=== PATIENT | male | born 1945 | race Caucasian/White ===

== ENCOUNTER 2021-11-11 12:04 | Outpatient (REF) | payer MEDICARE, SELFPAY ==
--- NOTE | ~2021-11-11 | XR_ITS ---
EXAMINATION: XR CHEST CLINICAL INFORMATION: R06.00 - Dyspnea, unspecified COMPARISON: None TECHNIQUE: 2 frontal views and a lateral projection of the chest are obtained for 3 views. FINDINGS: There are postoperative changes with mediastinal clips, left atrial appendage clamp, and sternotomy wires. The heart is upper limits of normal size. The vascularity is normal. There is no pneumothorax, pleural reaction, infiltrate, or effusion. The costophrenic sulci are clear. The hilar and mediastinal contours are normal. There are multilevel degenerative changes thoracic spine with bridging osteophytes at scattered ossification anterior spinal ligament. XR/XR chest 2V IMPRESSION: -Postoperative changes. Heart upper limits of normal. -Vascularity normal. Lungs clear.
--- NOTE | 2021-11-11 17:17 | PFT_ITS ---
FLOWS: FEV1 63% of predicted at 2.13 L. FVC 64% of predicted at 2.96 L. FEV1/FVC ratio of 0.72. No bronchodilator response. LUNG VOLUMES: Total lung capacity 66% of predicted at 4.93 L. Residual volume 70% of predicted at 1.87 L. Slow vital capacity 63% of predicted at 3.06 L. Expiratory reserve volume 64% of predicted at 0.87 L. Diffusion capacity is mildly decreased, diffusion capacity corrects to normal after adjustment for alveolar ventilation. IMPRESSION: Moderate restrictive ventilatory defect with no bronchodilator response. Decreased expiratory reserve volume suggests extrathoracic restriction likely secondary to abdominal obesity. Angel Orr MD AP/MODL / [id number]
== END 2021-11-11 12:05 | disposition home or self-care (01) ==
LOC: HO.RESP 12:04
PROVIDERS: PCP Internal Medicine; Visit Provider Hospitalist
DX: R06.00 Dyspnea, unspecified (principal); G47.33 Obstructive sleep apnea (adult) (pediatric); J90 Pleural effusion, not elsewhere classified; Z99.89 Dependence on other enabling machines and devices
CPT/HCPCS: 71046; 94060; 94618; 94727; 94729; 99202

== ENCOUNTER → 2021-12-23 10:13 | Outpatient (BNVA) | payer MEDICARE, SELFPAY | PROVIDERS: PCP Internal Medicine; Visit Provider Hospitalist | DX: G47.33 Obstructive sleep apnea (adult) (pediatric) (principal); J98.4 Other disorders of lung; J44.9 Chronic obstructive pulmonary disease, unspecified; R06.00 Dyspnea, unspecified; I48.91 Unspecified atrial fibrillation; Z99.89 Dependence on other enabling machines and devices | CPT/HCPCS: 99212 ==

== ENCOUNTER → 2022-01-20 09:44 | Outpatient (BNVA) | payer MEDICARE, SELFPAY | PROVIDERS: PCP Internal Medicine; Visit Provider Hospitalist | DX: J44.9 Chronic obstructive pulmonary disease, unspecified (principal); J98.4 Other disorders of lung; R06.00 Dyspnea, unspecified; G47.33 Obstructive sleep apnea (adult) (pediatric); I48.91 Unspecified atrial fibrillation; Z79.899 Other long term (current) drug therapy; Z99.89 Dependence on other enabling machines and devices | CPT/HCPCS: 99212 ==

== ENCOUNTER → 2022-07-22 09:46 | Outpatient (BNVA) | payer MEDICARE, SELFPAY | PROVIDERS: PCP Internal Medicine; Visit Provider Hospitalist | DX: J44.9 Chronic obstructive pulmonary disease, unspecified (principal); J98.4 Other disorders of lung; R06.00 Dyspnea, unspecified; G47.33 Obstructive sleep apnea (adult) (pediatric); I48.91 Unspecified atrial fibrillation; Z99.89 Dependence on other enabling machines and devices | CPT/HCPCS: 99212 ==

== ENCOUNTER 2023-01-13 10:40 | Outpatient (AMB) | payer MEDICARE, SELFPAY ==
--- NOTE | 2023-01-13 10:51 | MHC.OFFVIS ---
Intake Vital Signs 01/13/23 10:52 Height 6 ft Weight 282 lb BMI 38.2 Pulse 75 Pulse Source Pulse Oximeter Pulse Oximetry (%) 95 Oxygen Delivery Method Room Air Intake Visit Reasons: COPD Blueprint Cutter Required: No Allergies amlodipine Allergy (Severe, Verified 01/13/23 10:53) Muscle Pain atorvastatin Allergy (Severe, Verified 01/13/23 10:53) Anaphylaxis rosuvastatin [From Crestor] Allergy (Severe, Verified 01/13/23 10:53) Anaphylaxis terazosin Allergy (Severe, Verified 01/13/23 10:53) Anaphylaxis umeclidinium [From Incruse Ellipta] Adverse Reaction (Severe, Verified 01/13/23 10:53) Muscle cramps HPI HPI Comments History of Present Illness Details The patient is a 77-year-old gentleman with a known history of sleep apnea who presents with worsening respiratory symptoms. Apparently the patient did undergo a cardiac bypass surgery that was complicated by pleural effusions. This was done at [facility]. He did require a thoracentesis. Subsequently after surgery he continues to have some shortness of breath. He has been evaluated from a cardiac standpoint without any significant findings Per report. Recently the patient went to [place] where he was very short of breath. He does use a cane. He had to rent a scooter. This is very different for him. His shortness of breath is mainly with activity. Moderate to severe. Usually he is doing well at rest time. During the office visit we did go for 6 minutes walk test. It was apparent that the patient pulse ox was 98% throughout the ambulation. However, is very short of breath with dyspnea score of 7/10 with a heart rate of 110. the patient has not had any recent x-rays to review. the patient also brought his CPAP. I did download the data. His AHI is down to 1.6 events an hour. The therapy is working just fine. I will increase his minute impression from 4-6 cm. 12/23/2021 the patient is here for a pulmonary follow-up visit. For the last several days he has been significantly winded. He is short of breath with standing up. Moderate severity. The has been very concerned about his worsening respiratory symptoms. 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 He did undergo pulmonary function studies and his total lung capacity is decreased down to 66% predicted. His diffusing capacity is also decreased but it does correct to normal when corrected for the paralyzed diaphragm. the patient also likely has an obstructive physiology which will treat with a long-acting muscarinic antagonist. In the meantime he did also bring the CPAP. The CPAP therapy has been affecting beneficial in his AHI is well below 1. He also had an overnight oximetry which was normal suggesting that the CPAP on room air is sufficient for him. Therefore he continue with the current pressure settings which appeared to be effective. We did look at the x-ray. The patient does have some underlying atelectasis likely from the diaphragm. He also brought to my attention that his pulmonary nodules. At this point based on his worsening respiratory symptoms and abnormal chest x-ray I will request CT scan of the chest. During the examination was noted the patient had an elevated heart rate in regularly irregular consistent with AFib with rapid ventricular response. We did do an EKG demonstrating atrial fibrillation with rapid ventricular response with heart rate of 115. We did taken briefly for walking his heart rate did increase to 156. Patient was visually symptomatic. 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 01/20/2022 the patient is here for pulmonary follow-up visit. The patient was admitted to [facility] where he underwent cardioversion during the last admission. His metoprolol was increased from 25-50 mg and also placed on a cholesterol medication. The patient also had been started on Incruse. Therefore, he started all this new medications. He started complaining of neck discomfort and muscle aches. Therefore he stopped taking the cholesterol medication. Ultimately cut down the metoprolol to 25 mg again and also stop using the Incruse in view of the persistent symptoms. Once he stopped all the medicine his symptoms improved. His shortness of breath overall has been much better although he still feels short of breath and cough. He felt much better on the Incruse. However he could not tolerated due to adverse effects. I did talk to about other medications such as Spiriva that he could potentially start for long-acting muscarinic antagonist that will interfere with his atrial fibrillation. Due to his atrial fibrillation is very labile state the patient needs to avoid beta agonists if possible. Therefore will do a prior approval in order for him to start Spiriva and the patient will call his trade union official to make sure of the medication adjustments that he made on hos own. in the meantime he continues uses CPAP. The CPAP therapy continues to be affecting beneficial. The last time he came in we did download the data and he is doing very well on his current settings. 07/22/2022 the patient is here for a pulmonary follow-up visit. Overall the patient continues to do well. He is using the Spiriva. Does not feel like it is working as well as the Anoro did. He did develop the muscle cramps and discomfort at the time when he was using the Incruse. However, he other had other issues that have been going on. He is willing to go back on the Incruse since he was working better than the Spiriva. Does have some shortness of breath with activity specially later on the daytime. [id number] severity. Also has some chest tightness. The patient's AFib is under control. I do believe that he probably do better on a combination bronchodilator. Therefore I will send him Anoro to the pharmacy. He is going to monitor closely for any tremulousness or any palpitations. Also, if he does develop muscle cramping he should continue to take enough potassium in his diet to make sure to avoid significant potassium she is from the medication. His last chest x-ray was back from October which appear to be clear. In meantime he also continues CPAP therapy. CPAP therapy continues to be affective and beneficial. He has been getting supplies readily with his [employer] company. He does use the machine more than 4 hours a night. 01/13/2023 the patient is here for pulmonary follow-up visit. Overall the patient is doing well. He is responding well to the Anoro inhaler. He is using it daily. She does not appear to be affecting his atrial fibrillation. He feels like he is breathing better with. Therefore he will continue at this time. The patient also has been using his CPAP. CPAP therapy has been affecting beneficial. We did download the data and his AHI is down to 2 point 2. It appears that his average pressure around 10 cm in the machine starts at 6 cm. I did increase it to 7 cm and he is able to increase it up to 8 cm water pressure for minimum pressure if he still feels too weak. He does use a nasal mask any seems to be tolerating that well. The therapy has been affecting beneficial new continue to use it more than 4 hours a night. Soon he is going to have some teeth removed. The patient will have to stop the CPAP while he heals from that. The patient does have a recliner and I did request recommend that he sleep in the recliner while he is off the CPAP. Patient is doing well otherwise will follow-up in a year's time or sooner if any other issues arise. [facility] Medical History (Updated 12/25/21 @ 22:29 by Carlos Jane MD) Chronic restrictive lung disease Dyspnea Social History (Updated 11/11/21 @ 11:18 by NOLAN Farrar) Patient Tobacco Use Status: Former Tobacco user Tobacco use type: Cigarette Years Smoked: 34 Years Review of Systems Const Denies fever(s) Eyes Denies change in vision ENT Denies change in voice Card Denies chest pain, Denies palpitations, Denies dyspnea and Reports dyspnea on exertion Resp Reports cough, Denies dyspnea, Reports dyspnea on exertion, Denies stridor and Denies wheezing GI Reports no additional complaints Musc Reports abnormal gait, Reports arthralgias and Reports limited range of motion Skin/Breast Denies rash Neuro Reports abnormal gait Endo Denies palpitations Aller/Immun Denies wheezing Physical Exam Vital Signs: Last Vital Signs Pulse 75 01/13/23 10:52 Pulse Ox 95 01/13/23 10:52 Oxygen Delivery Method Room Air 01/13/23 10:52 BMI result Body Mass Index 38.2 Const General: alert Neck Neck: Yes normal visual inspection and Yes full ROM Chest Chest palpation & inspection: normal inspection of the chest Resp Auscultation: no crackles, no rales, no rhonchi, no wheezes and diminished lung sounds Cardio Rate: regular rate Rhythm: regular rhythm Heart sounds: S1 normal heart sound present and S2 normal heart sound present GI Inspection: Yes normal to inspection Skin General skin exam: no rashes or lesions noted Extrem General: No clubbing and No cyanosis Assessment & Plan Assessment & Plan (1) Dyspnea: Code(s): R06.00 - Dyspnea, unspecified Qualifiers: Dyspnea type: dyspnea on exertion Qualified Code(s): R06.00 - Dyspnea, unspecified (2) LISETTE on CPAP: Code(s): G47.33 - Obstructive sleep apnea (adult) (pediatric); Z99.89 - Dependence on other enabling machines and devices (3) Chronic restrictive lung disease: Code(s): J98.4 - Other disorders of lung (4) COPD (chronic obstructive pulmonary disease): Code(s): J44.9 - Chronic obstructive pulmonary disease, unspecified Plan continue Anoro continue APAP therapy, Adjusted pressures today 7-14. The therapy has been very effective and beneficial. When he does have his teeth extraction, should hold the PAP therapy and sleep in the recliner for the appropriate required recovery time F/U 12 months Coding Level of Care Code Est Pt Level 4 (76988) Diagnoses Dyspnea R06.00 Dyspnea type: dyspnea on exertion LISETTE on CPAP G47.33; Z99.89 Chronic restrictive lung disease J98.4 COPD (chronic obstructive pulmonary disease) J44.9 Time Spent (min) 18
[2023-01-13 10:52] VITALS: PULSE 75; O2SAT 95; BMI 38.2
== END 2023-01-13 11:28 | disposition home or self-care (01) ==
PROVIDERS: PCP Internal Medicine; Visit Provider Hospitalist
DX: R06.00 Dyspnea, unspecified (principal); G47.33 Obstructive sleep apnea (adult) (pediatric); Z99.89 Dependence on other enabling machines and devices; J98.4 Other disorders of lung; J44.9 Chronic obstructive pulmonary disease, unspecified
CPT/HCPCS: 99214

== ENCOUNTER → 2023-01-13 10:40 | Outpatient (BNVA) | payer MEDICARE, SELFPAY | PROVIDERS: PCP Internal Medicine; Visit Provider Hospitalist | DX: J44.9 Chronic obstructive pulmonary disease, unspecified (principal); J98.4 Other disorders of lung; R06.00 Dyspnea, unspecified; G47.33 Obstructive sleep apnea (adult) (pediatric); Z99.89 Dependence on other enabling machines and devices; Z79.899 Other long term (current) drug therapy | CPT/HCPCS: 99212 ==

== ENCOUNTER 2024-01-19 10:39 | Outpatient (AMB) | payer MEDICARE, SELFPAY ==
--- NOTE | 2024-01-19 10:42 | MHC.OFFVIS ---
Vital Signs 01/19/24 10:44 Height 6 ft Weight 235 lb BMI 31.9 BP 134/78 Blood Pressure Location Lt brachial Position Sitting Pulse 65 Pulse Source Pulse Oximeter Pulse Oximetry (%) 98 Oxygen Delivery Method Room Air Intake Visit Reasons: COPD Six Horse Hitch Driver Required: No Allergies amlodipine Allergy (Severe, Verified 01/19/24 10:47) Muscle Pain atorvastatin Allergy (Severe, Verified 01/19/24 10:47) Anaphylaxis rosuvastatin [From Crestor] Allergy (Severe, Verified 01/19/24 10:47) Anaphylaxis terazosin Allergy (Severe, Verified 01/19/24 10:47) Anaphylaxis umeclidinium [From Incruse Ellipta] Adverse Reaction (Severe, Verified 01/19/24 10:47) Muscle cramps HPI Comments Details: The patient is a 78-year-old gentleman with a known history of sleep apnea who presents with worsening respiratory symptoms. Apparently the patient did undergo a cardiac bypass surgery that was complicated by pleural effusions. This was done at [facility]. He did require a thoracentesis. Subsequently after surgery he continues to have some shortness of breath. He has been evaluated from a cardiac standpoint without any significant findings Per report. Recently the patient went to [place] where he was very short of breath. He does use a cane. He had to rent a scooter. This is very different for him. His shortness of breath is mainly with activity. Moderate to severe. Usually he is doing well at rest time. During the office visit we did go for 6 minutes walk test. It was apparent that the patient pulse ox was 98% throughout the ambulation. However, is very short of breath with dyspnea score of 7/10 with a heart rate of 110. the patient has not had any recent x-rays to review. the patient also brought his CPAP. I did download the data. His AHI is down to 1.6 events an hour. The therapy is working just fine. I will increase his minute impression from 4-6 cm. 01/13/2023 the patient is here for pulmonary follow-up visit. Overall the patient is doing well. He is responding well to the Anoro inhaler. He is using it daily. She does not appear to be affecting his atrial fibrillation. He feels like he is breathing better with. Therefore he will continue at this time. The patient also has been using his CPAP. CPAP therapy has been affecting beneficial. We did download the data and his AHI is down to 2 point 2. It appears that his average pressure around 10 cm in the machine starts at 6 cm. I did increase it to 7 cm and he is able to increase it up to 8 cm water pressure for minimum pressure if he still feels too weak. He does use a nasal mask any seems to be tolerating that well. The therapy has been affecting beneficial new continue to use it more than 4 hours a night. Soon he is going to have some teeth removed. The patient will have to stop the CPAP while he heals from that. The patient does have a recliner and I did request recommend that he sleep in the recliner while he is off the CPAP. Patient is doing well otherwise will follow-up in a year's time or sooner if any other issues arise. 01/19/2024 the patient is here for a pulmonary follow-up visit. Overall the patient has been doing okay. He has been struggling with his current CPAP. It appears that is no longer working effectively. His given him a warning sign that the angina time. Through [employer] for more than 5 years, likely more like 9 years. Machine had been working very good up before that. The patient does use it with good adherence. He does have significant cardiovascular risk factors so therefore needs to continue with the APAP. Will request a replacement machine. In addition to that he has not dental work done now can not wear dentures when sleeping. Therefore the nasal mask that was working well for him does not hold well because of the lack of dentures. Therefore, will go ahead and request a different mask for him, P 30 I. I did have a sample for him to try. Medium seems to be a good fit. Therefore will request that as well from his [employer] company, [employer]. From a respiratory status seems to be doing well on the Anoro. His AFib is well controlled so therefore will continue for now. We can always consider switching over to a anti muscarinic agent such as Spiriva in the near future. Right now seems to be doing well with everything going on I think is good option just to stay on it as long as he is tolerating it. [facility] Medical History (Updated 01/19/24 @ 22:21 by Carlos Jane MD) Chronic restrictive lung disease Dyspnea Social History (Updated 11/11/21 @ 11:18 by NOLAN Farrar) Patient Tobacco Use Status: Former Tobacco user Tobacco use type: Cigarette Years Smoked: 34 Years Review of Systems Const Denies fever(s) Eyes Denies change in vision ENT Denies change in voice Card Denies chest pain, Denies palpitations, Denies dyspnea and Reports dyspnea on exertion Resp Reports cough, Denies dyspnea, Reports dyspnea on exertion, Denies stridor and Denies wheezing GI Reports no additional complaints Musc Reports abnormal gait, Reports arthralgias and Reports limited range of motion Skin/Breast Denies rash Neuro Reports abnormal gait Endo Denies palpitations Aller/Immun Denies wheezing Physical Exam Vital Signs: Last Vital Signs Pulse 65 01/19/24 10:44 BP 134/78 01/19/24 10:44 Pulse Ox 98 01/19/24 10:44 Oxygen Delivery Method Room Air 01/19/24 10:44 BMI result Body Mass Index 31.9 Const General: alert Neck Neck: Yes normal visual inspection and Yes full ROM Chest Chest palpation & inspection: normal inspection of the chest Resp Auscultation: no crackles, no rales, no rhonchi, no wheezes and diminished lung sounds Cardio Rate: regular rate Rhythm: regular rhythm Heart sounds: S1 normal heart sound present and S2 normal heart sound present GI Inspection: Yes normal to inspection Skin General skin exam: no rashes or lesions noted Extrem General: No clubbing and No cyanosis Assessment & Plan Assessment & Plan (1) Dyspnea: Code(s): R06.00 - Dyspnea, unspecified Category: Medical Qualifiers: Dyspnea type: dyspnea on exertion Qualified Code(s): R06.00 - Dyspnea, unspecified (2) LISETTE on CPAP: Code(s): G47.33 - Obstructive sleep apnea (adult) (pediatric); Z99.89 - Dependence on other enabling machines and devices Category: Medical (3) Chronic restrictive lung disease: Code(s): J98.4 - Other disorders of lung Category: Medical (4) COPD (chronic obstructive pulmonary disease): Code(s): J44.9 - Chronic obstructive pulmonary disease, unspecified Category: Medical Qualifiers: COPD type: chronic bronchitis Chronic bronchitis type: simple Qualified Code(s): J41.0 - Simple chronic bronchitis Plan continue Anoro CPAP broken beyond repair, needs a replacment APAP. Also needs a new mask. We will request APAP 8-14 with p30i medium needs CXR F/U 12 months Orders: Orders XR chest 2V Today R06.00 - Dyspnea, unspecified Coding Level of Care Code Est Pt Level 4 (43213) Diagnoses Dyspnea on exertion R06.00 Dyspnea type: dyspnea on exertion LISETTE on CPAP G47.33; Z99.89 Chronic restrictive lung disease J98.4 Simple chronic bronchitis J41.0 COPD type: chronic bronchitis Chronic bronchitis type: simple Time Spent (min) 17
[2024-01-19 10:44] VITALS: BP 134/78; PULSE 65; O2SAT 98; BMI 31.9
== END 2024-01-19 11:30 | disposition home or self-care (01) ==
PROVIDERS: PCP Internal Medicine; Visit Provider Hospitalist
DX: R06.00 Dyspnea, unspecified (principal); G47.33 Obstructive sleep apnea (adult) (pediatric); Z99.89 Dependence on other enabling machines and devices; J98.4 Other disorders of lung; J41.0 Simple chronic bronchitis
CPT/HCPCS: 99214

== ENCOUNTER → 2024-01-19 10:39 | Outpatient (BNVA) | payer MEDICARE, SELFPAY | PROVIDERS: PCP Internal Medicine; Visit Provider Hospitalist | DX: R06.00 Dyspnea, unspecified (principal); J98.4 Other disorders of lung; J41.0 Simple chronic bronchitis; G47.33 Obstructive sleep apnea (adult) (pediatric); Z99.89 Dependence on other enabling machines and devices | CPT/HCPCS: 99212 ==

== ENCOUNTER 2024-03-18 13:34 | Outpatient (REF) | payer MEDICARE, SELFPAY ==
--- NOTE | ~2024-03-18 | XR_ITS ---
EXAMINATION: XR CHEST CLINICAL INFORMATION: Dyspnea COMPARISON: Chest x-ray on 11/11/2021 TECHNIQUE: 2 views of the chest were obtained. FINDINGS: No significant abnormality is noted involving the heart, lungs, mediastinum, bony thorax or soft tissues. XR/XR chest 2V IMPRESSION: Unremarkable examination. Electronically signed by: Lori Rosado MD 03/19/2024 05:33 PM EDT RP
== END 2024-03-18 13:35 | disposition home or self-care (01) ==
LOC: HO.XRAY 13:34
PROVIDERS: PCP Internal Medicine; Visit Provider Hospitalist
DX: R06.00 Dyspnea, unspecified (principal)
CPT/HCPCS: 71046

== ENCOUNTER 2025-01-16 10:45 | Outpatient (AMB) | payer MEDICARE, SELFPAY ==
--- NOTE | 2025-01-16 10:51 | MHC.OFFVIS ---
Vital Signs 01/16/25 10:52 Height 6 ft Weight 244 lb 11.41 oz BMI 33.2 BP 134/70 Blood Pressure Location Lt brachial Position Sitting Pulse 73 Pulse Source Pulse Oximeter Pulse Oximetry (%) 99 Oxygen Delivery Method Room Air Intake Visit Reasons: COPD [employer] Inspector Required: No Accompanied by: Spouse Allergies amlodipine Allergy (Severe, Verified 01/16/25 10:56) Muscle Pain atorvastatin Allergy (Severe, Verified 01/16/25 10:56) Anaphylaxis rosuvastatin (From Crestor) Allergy (Severe, Verified 01/16/25 10:56) Anaphylaxis terazosin Allergy (Severe, Verified 01/16/25 10:56) Anaphylaxis umeclidinium (From Incruse Ellipta) Adverse Reaction (Severe, Verified 01/16/25 10:56) Muscle cramps HPI Comments Details: The patient is a 79-year-old gentleman with a known history of sleep apnea who presents with worsening respiratory symptoms. Apparently the patient did undergo a cardiac bypass surgery that was complicated by pleural effusions. This was done at [facility]. He did require a thoracentesis. Subsequently after surgery he continues to have some shortness of breath. He has been evaluated from a cardiac standpoint without any significant findings Per report. Recently the patient went to [place] where he was very short of breath. He does use a cane. He had to rent a scooter. This is very different for him. His shortness of breath is mainly with activity. Moderate to severe. Usually he is doing well at rest time. During the office visit we did go for 6 minutes walk test. It was apparent that the patient pulse ox was 98% throughout the ambulation. However, is very short of breath with dyspnea score of 7/10 with a heart rate of 110. the patient has not had any recent x-rays to review. the patient also brought his CPAP. I did download the data. His AHI is down to 1.6 events an hour. The therapy is working just fine. I will increase his minute impression from 4-6 cm. 01/13/2023 the patient is here for pulmonary follow-up visit. Overall the patient is doing well. He is responding well to the Anoro inhaler. He is using it daily. She does not appear to be affecting his atrial fibrillation. He feels like he is breathing better with. Therefore he will continue at this time. The patient also has been using his CPAP. CPAP therapy has been affecting beneficial. We did download the data and his AHI is down to 2 point 2. It appears that his average pressure around 10 cm in the machine starts at 6 cm. I did increase it to 7 cm and he is able to increase it up to 8 cm water pressure for minimum pressure if he still feels too weak. He does use a nasal mask any seems to be tolerating that well. The therapy has been affecting beneficial new continue to use it more than 4 hours a night. Soon he is going to have some teeth removed. The patient will have to stop the CPAP while he heals from that. The patient does have a recliner and I did request recommend that he sleep in the recliner while he is off the CPAP. Patient is doing well otherwise will follow-up in a year's time or sooner if any other issues arise. 01/19/2024 the patient is here for a pulmonary follow-up visit. Overall the patient has been doing okay. He has been struggling with his current CPAP. It appears that is no longer working effectively. His given him a warning sign that the angina time. Through [employer] for more than 5 years, likely more like 9 years. Machine had been working very good up before that. The patient does use it with good adherence. He does have significant cardiovascular risk factors so therefore needs to continue with the APAP. Will request a replacement machine. In addition to that he has not dental work done now can not wear dentures when sleeping. Therefore the nasal mask that was working well for him does not hold well because of the lack of dentures. Therefore, will go ahead and request a different mask for him, P 30 I. I did have a sample for him to try. Medium seems to be a good fit. Therefore will request that as well from his [employer] company, [employer]. From a respiratory status seems to be doing well on the Anoro. His AFib is well controlled so therefore will continue for now. We can always consider switching over to a anti muscarinic agent such as Spiriva in the near future. Right now seems to be doing well with everything going on I think is good option just to stay on it as long as he is tolerating it. 01/16/2025 the patient is here for pulmonary follow-up visit. Overall he is doing well. Continues on the Anoro with good effect. Has not had to use his rescue inhaler often. Maybe when it was very hot and humid he had to use his inhaler. His atrial fibrillation cardiac issues have been stable. He also had a chest x-ray back 2023 which I personally reviewed demonstrating no acute disease. The patient has been using his CPAP. The CPAP therapy has been affecting beneficial. He did get his new machine. His AHI is down to 2. Although he has significant leakage through his mouth and has been snoring. Therefore I did explain to him that he needs to switch from a nasal mask to a fullface mask. The patient is agreeable to this. I did have a F20 AirTouch foam mask available. This allowed him to feel a lot better with seal. He tried and tolerated it well. He is going to go ahead and continue to use it and if he is content with it he will let me know so I can order it from his DME company, [employer]. Otherwise the patient is doing well will follow-up in a year's time. [facility] Medical History (Updated 01/19/24 @ 22:21 by Carlos Jane MD) Chronic restrictive lung disease Dyspnea Social History Patient Tobacco Use Status: Former Tobacco user Tobacco use type: Cigarette Years Smoked: 34 Years Review of Systems Const Denies fever(s) Eyes Denies change in vision ENT Denies change in voice and Reports dry mouth Card Denies chest pain, Denies palpitations, Denies dyspnea and Reports dyspnea on exertion Resp Reports cough, Denies dyspnea, Reports dyspnea on exertion, Denies stridor and Denies wheezing GI Reports no additional complaints Musc Reports abnormal gait, Reports arthralgias and Reports limited range of motion Skin/Breast Denies rash Neuro Reports abnormal gait Endo Denies palpitations Aller/Immun Denies wheezing Physical Exam Vital Signs: Last Vital Signs Pulse 73 01/16/25 10:52 BP 134/70 01/16/25 10:52 Pulse Ox 99 01/16/25 10:52 Oxygen Delivery Method Room Air 01/16/25 10:52 BMI result Body Mass Index 33.2 Const General: alert Neck Neck: Yes normal visual inspection and Yes full ROM Chest Chest palpation & inspection: normal inspection of the chest Resp Auscultation: no crackles, no rales, no rhonchi, no wheezes and diminished lung sounds Cardio Rate: regular rate Rhythm: regular rhythm Heart sounds: S1 normal heart sound present and S2 normal heart sound present GI Inspection: Yes normal to inspection Skin General skin exam: no rashes or lesions noted Extrem General: No clubbing and No cyanosis Assessment & Plan Assessment & Plan (1) Dyspnea: Code(s): R06.00 - Dyspnea, unspecified Category: Medical Qualifiers: Dyspnea type: dyspnea on exertion Qualified Code(s): R06.00 - Dyspnea, unspecified (2) LISETTE on CPAP: Code(s): G47.33 - Obstructive sleep apnea (adult) (pediatric); Z99.89 - Dependence on other enabling machines and devices Category: Medical (3) Chronic restrictive lung disease: Code(s): J98.4 - Other disorders of lung Category: Medical (4) COPD (chronic obstructive pulmonary disease): Code(s): J44.9 - Chronic obstructive pulmonary disease, unspecified Category: Medical Qualifiers: COPD type: chronic bronchitis Chronic bronchitis type: simple Qualified Code(s): J41.0 - Simple chronic bronchitis Plan continue Anoro LOIDA as needed continue APAP 8-14, trial F20 airtouch F/U 12 months Coding Level of Care Code Est Pt Level 4 (43694) Complex EM visit Add On G2211 Diagnoses Dyspnea on exertion R06.00 Dyspnea type: dyspnea on exertion LISETTE on CPAP G47.33; Z99.89 Chronic restrictive lung disease J98.4 Simple chronic bronchitis J41.0 COPD type: chronic bronchitis Chronic bronchitis type: simple Time Spent (min) 17
[2025-01-16 10:52] VITALS: BP 134/70; PULSE 73; O2SAT 99; BMI 33.2
--- OUTSIDE RECORDS SUMMARY | 2025-01-16 11:45 | XMS_ITS | Clinical Summary ---
Author Organization [facility] Address [address] [place] [address] Care Team Providers Care Application Support Name Role Phone Shayan Sosa MD Primary Care Provider [phone] Allergies No known active allergies Medications Medication Sig Dispensed Refills Start Date End Date Status Alirocumab (Praluent) 75 MG/ML SOAJ Inject 75 mg under the skin. 0 01/31/2022 Active amLODIPine (NORVASC) tablet 5 mg 0 11/27/2021 Active apixaban (ELIQUIS) 5 MG TABS tablet Take 5 mg by mouth. 0 08/27/2021 Active aspirin 81 MG EC tablet Take 81 mg by mouth. 0 Active ezetimibe (ZETIA) tablet 10 mg Take 1 tablet by mouth daily. 0 08/26/2021 Active furosemide (LASIX) 20 MG tablet Take 1 tablet by mouth 2 (two) times a day. 0 12/16/2021 Active insulin aspart (NovoLOG) injection 100 units/mL Inject under the skin. 0 Active Magnesium Citrate 125 MG CAPS Take 250 mg by mouth. 0 02/09/2020 Active metFORMIN (GLUCOPHAGE) tablet 1000 mg Take 1,000 mg by mouth. 0 07/01/2022 Active metoprolol succinate (TOPROL-XL) 24 hr tablet 25 mg Take 50 mg by mouth. 0 Active nitroglycerin (NITROSTAT) 0.[address] 0.4 mg under the tongue. 0 Active Spiriva Respimat 2.5 MCG/ACT AERS 0 01/21/2022 Active Incruse Ellipta 62.5 MCG/INH AEPB 0 12/25/2021 Active Social History Tobacco Use Types Packs/Day Years Used Date Smoking Tobacco: Never Smokeless Tobacco: Never Alcohol Use Standard Drinks/Week Comments Not Currently 0 (1 standard drink = 0.6 oz pur e alcohol) Sex and Gender Information Value Date Recorded Sex Assigned at Male 01/31/2022 3:14 PM EDT Gender Identity Not on file Sexual Orientation Not on file Job Start Date Occupation Industry Not on file Not on file Not on file Last Filed Vital Signs Vital Sign Reading Time Taken Comments Blood Pressure 152/88 01/31/2022 3:03 PM EDT Pulse 83 01/31/2022 3:03 PM EDT Temperature 36.4 C (97.6 F) 01/31/2022 3:03 PM EDT Respiratory Rate 16 01/31/2022 3:03 PM EDT Oxygen Saturation 97% 01/31/2022 3:03 PM EDT Inhaled Oxygen Concentration - - Weight 131.5 kg (290 lb) 01/31/2022 3:03 PM EDT Height 185.4 cm (6' 1 ) 01/31/2022 3:03 PM EDT Body Mass Index 38.26 01/31/2022 3:03 PM EDT Plan of Treatment Health Maintenance Due Date Last Done Comments Hepatitis C Screening 1945 COVID-19 Vaccine (#1) 05/24/1946 Depression Screening 1958 Preventative Health Evaluation 1964 DTap / Tdap / Td (1 - Tdap) 1965 Fall Risk Assessment 11/23/2011 Pneumococcal Vaccine (1 of 1 - PCV) 11/23/2011 RSV Adult > 60+ Yrs or (1 - 1-dose 75+ series) 2021 Influenza Vaccine (#1) 2025 , 01/23/2020, 03/23/2019 Shingrix-Zoster Vaccine Completed 05/04/20 18, 02/17/2018 Hepatitis B Vaccines Aged Out No long er eligible based on patient's age to complete this topic RSV Ped < 20 months Aged Out No longe r eligible based on patient's age to complete this topic Care Teams Application Support Relationship Specialty Start Date End Date Shayan Sosa MD [address] [facility] Primary Care [place] [address] PCP - General Internal Medicine 01/31/22
--- OUTSIDE RECORDS SUMMARY | 2025-01-16 11:45 | XMS_ITS | Patient Health Record ---
Author Organization [facility] Address [address] [facility] [address] [place] [address] Care Team Providers Care Teletype Installer Name Role Phone Shayan Sosa Primary Care Provider UnavailDESIRAE [place] Unavailable [phone] Allergies Allergen (clinical drug ingredient) Drug/Non Drug Allergy documented on EMR Reaction Allergy Type Onset Date Status Substance with 5-qhtxhqo-8-methylglut aryl-coenzyme A reductase inhibitor mechanism of action (substance) Statins muscle pain Drug Allergy Active Reason For Referral No Information Medications Medication SIG (Take, Route, Frequency, Duration) Notes Start Date End Date Status Losartan Potassium 50 MG 1 tablet Orally Once a day Active Spiriva Respimat 2.5 MCG/ACT 2 puffs Inhalation Once a day Not-Taking Qulipta 60 MG 1 tablet Orally Once a day Active amLODIPine Besylate 5 MG 1 tablet Orally Once a day Not-Taking Aspirin 81 MG 1 tablet Orally Once a day Active Crestor 20 MG 1 tablet Orally Once a day Not-Taking Praluent 75 MG/ML as directed Subcutaneous Active Lidocaine HCl 5 % as directed Externally daily; Duration: 30 days Apply to both lower extremities at bedtime as needed for neuropathy pains. 03/23/2020 Not-Taking Metoprolol Succinate ER 100 MG 1 tablet Orally Once a day Active Furosemide 40 MG 1 tablet Orally 40mg in the morning, and 20mg in the evening Active Eliquis 5 MG as directed Orally Active metFORMIN HCl 1000 MG 1 tablet with a meal Orally twice a day Active Magnesium 125 MG as directed Orally Active NovoLOG FlexPen 100 UNIT/ML as directed Subcutaneous Active Basaglar KwikPen 100 UNIT/ML as directed Subcutaneous 65 twice a day Active Problems Problem Type SNOMED Code ICD Code Onset Dates Problem Status W/U Status Risk Notes Problem Type 2 diabetes mellitus with diabetic polyneuropathy (E11.42) Active confirmed Problem Type 2 diabetes mellitus with diabetic polyneuropathy, unspecified whether skilled nursing insulin use (E11.42) Active confirmed Plan Of Treatment Pending Test Test Name Order Date X ray : Ankle, left, 3 views 03/23/2020 X ray : Ankle, left, 3 views 02/05/2022 Ultrasound : Artery Doppler Low Ext Bila t 03/23/2020 Ultrasound : Doppler : Veins Leg Neil. AFO ANK GAUNTLT PREFAB W/FIT&ADJ 022 AFO ANK GAUNTLT PREFAB W/FIT&ADJ 023 AFO ANK GAUNTLT PREFAB W/FIT&ADJ 023 Insurance Providers Payer Name Payer Address Payer Phone Subscriber Number Group Number Insured Name Patient Relationship to Insured Coverage Start Date Coverage End Date Medicare of [place] [address] [place]ELICIANO [phone] [id number] Сергей Mcugire Self - patient is the insured [employer] [address] [place] [phone] [id number] Сергей Mcguire Self - patient is the insured Medical (General) History Medical History History ICD Code Old myocardial infarction CAD (coronary artery disease) s/p RCA st ent placed Atrial fibrillation Anginal pain Atherosclerosis Bilateral pleural effusion Cataract extraction status Dyspnea on exertion Ex-smoker. quit 1987 hypertension history of heart artery stent hypercholesterolemia heart murmur OA(osteoarthritis) LISETTE on CPAP Obesity(BMI 39 as of 06/18/18) Raynaud phenomenon Triple vessel coronary artery disease Type 2 diabetes mellitus Surgical History Surgery Date(Month/Year) Historical left total knee replacement Historical right total hip replacement CABG and cardiac stent cardioversion 10/2021 cardioversion 08/2022 cardioversion 11/2022 ablation 03/2023 Hospitalization History Reason Date(Month/Year) A [facility] X 3 days had cardio version 12/23/2021
--- OUTSIDE RECORDS SUMMARY | 2025-01-16 11:45 | XMS_ITS | Clinical Summary ---
Author Organization [address] [place] [address] [place] [id number] Phone Care Team Providers Care [employer] Marketing Analyst Name Role Phone Shayan Sosa MD Primary Care Provider Allergies Active Allergy Reactions Criticality Noted Date Comments Amlodipine 06/09/2016 Atorvastatin 06/09/2016 Other Reaction(s): myalgia Rosuvastatin Muscular Issues 06/22/2024 Exenatide Dizziness 06/22/2024 Glyburide-Metformin Rash 06/22/2024 Pioglitazone Swelling 06/22/2024 Pravastatin 06/22/2024 Other Reaction(s): myalgia Saxagliptin 06/22/2024 Other Reaction(s): leg cramps Semaglutide 06/22/2024 ab pain and tachycardia with 7mg dose Simvastatin 06/22/2024 Other Reaction(s): myalgia Sitagliptin 06/22/2024 Other Reaction(s): leg cramps Terazosin 06/09/2016 Medications UNABLE TO FIND CPAP Historical (HISTORICAL CPAP) Active magnesium citrate 125 mg capsule Take 1 Tablet by mouth daily. Active aspirin 81 mg EC tablet Take 81 mg by mouth daily. Active losartan (COZAAR) 50 mg tablet Take 1 Tablet by mouth 2 times daily. Active metFORMIN (GLUCOPHAGE) 1,000 mg tablet Take 1,000 mg by mouth 2 times daily (with meals). Active umeclidinium-v ilanteroL (Anoro Ellipta) 62.5-25 mcg/actuation inhaler Inhale 1 Puff into the lungs daily. Active ezetimibe (ZETIA) 10 mg tablet Take 1 tablet (10 mg total) by mouth 1 (one) time each day. 90 tablet 2 5 Active metoprolol succinate (TOPROL-XL) 50 mg 24 hr tablet Take 1 tablet (50 mg total) by mouth 1 (one) time each day. Do not crush or chew. 90 each 3 5 Active hydrALAZINE (APRESOLINE) 25 mg tablet Take 1 tablet (25 mg total) by mouth 2 (two) times a day. 180 tablet 3 5 Active furosemide (LASIX) 20 mg tablet TAKE ONE TABLET BY MOUTH TWO TIMES A DAY 180 tablet 1 5 Active Mounjaro 5 mg/0.5 mL injection Inject 0.5 mL (5 mg total) under the skin every 7 (seven) days. Active insulin glargine (LANTUS SoloStar) 100 unit/mL (3 mL) injection pen Inject 20 Units into the skin daily. 12/23/19 25 Discontinu ed(Discont inued by another clinician) Active Problems Problem Noted Date Diagnosed Date Hypotension 12/16/2023 Dizziness 11/09/2023 Murmur 12/04/2022 Old myocardial infarction 12/04/2022 Triple vessel coronary artery disease 12/04/2022 Anginal pain (CMS/HCC V24) 12/04/2022 Heart failure with preserved ejection fraction (CMS/HCC V24, CMS/HCC V28) 01/07/2022 Overview (04/26/2024): EF 55 to 60% per echo 05/2020 Congestive heart failure (CHF) (CMS/HCC V24, CMS /HCC V28) 10/22/2020 Overview (04/26/2024): Negative PYP May 2021 Last Assessment & Plan: He is euvolemic. Continue current regimen. Assessment & Plan (12/22/2024 11:25 AM EDT): Appears euvolemic by physical exam. On low-dose diuretics. Will update BMP, check BNP. Orders: Basic metabolic panel; Future B-type natriuretic peptide; Future Magnesium; Future Coronary artery disease invo lving coronary bypass graft of [place] heart without angina pectoris 06/25/2020 Overview (04/26/2024): VA and RCA PCI In 2005 Anginal symptom of SOB 5V CABG 06/[address] Burrows receiving a GIRALDO to LAD, SVG to the diagonal, SVG to the ramus, SVG to acute marginal branch of the RCA, and sequentially to the posterior left ventricular branch of the RCA with AtriCure clip to the KELSEY. Negative Leticia MIBI August 2020 Last Assessment & Plan: He had no angina symptoms. Assessment & Plan (12/22/2024 11:25 AM EDT): Status post CABG in 2018. No angina symptom. Unfortunately, he cannot tolerate statin and PCSK9 inhibitor is cost prohibitive. Will repeat lipid profile and readdress treatment. If PCSK9 inhibitor remains very expensive, we will explore the possibility of alternative therapy. Orders: ECG 12 lead Lipid panel with reflex to direct LDL; Future Essential hypertension 06/25/2020 Overview (04/26/2024): Last Assessment & Plan: Blood pressure high frequently. Will increase losartan to 50 mg daily. He is not sure whether amlodipine gave him diarrhea. We will discontinue for now. Mixed hyperlipidemia 06/25/2020 Overview (04/26/2024): Last Assessment & Plan: Could not tolerate statin. Doing great with PCSK9 inhibitor. Atrial fibrillation (CMS/HCC V24, CMS/HCC V28) 0 06/25/2020 Overview (04/26/2024): AtriCure Clip to the KELSEY at the time of his CABG in 06/2018 anticoagulated with apxiaban Last Assessment & Plan: Is in sinus today. Continue anticoagulation and metoprolol. Assessment & Plan (12/22/2024 11:25 AM EDT): EKG demonstrates sinus rhythm today. He has not had recurrent bothersome palpitation. He has been off anticoagulation after VIVIAN confirmed exclusion of left atrial appendage. Restrictive lung disease 07/30/2016 Obstructive sleep apnea syndrome 07/30/2016 Lung mass 07/30/2016 Obesity with body mass index 30 or greater 07/29 Encounters Date Type Department Care Team Description 12/22/2024 10:50 AM EDT Office Visit [facility] [address] [place] [address] Willian Benjamin MD Coronary artery disease involving coronary bypass graft of [place] heart without angina pectoris (Primary Dx); Congestive heart failure, unspecified HF chronicity, unspecified heart failure type (CMS/[facility] V24, CMS/[facility] V28); Paroxysmal atrial fibrillation ([facility] V24, [facility] V28) from Last 3 Months Surgical History Surgery Date Site/Laterality Comments OTHER SURGICAL HISTORY 2018 PROCEDURE: NM CARDIOVERSION ELECTIVE ARRHYTHMIA EXTERNAL OTHER SURGICAL HISTORY PROCEDURE: NM CORONARY ARTERY BYP W/VEIN & ARTERY GRAFT 5 VEIN ANGIOPLASTY 2005 PROCEDURE: HISTORICAL ANGIOPLASTY; COMMENT: PCI of RCA CHOLECYSTECTOMY PROCEDURE: HISTORICAL CHOLECYSTECTOMY KNEE ARTHROSCOPY Left PROCEDURE: NM ARTHROSCOPY AID TX SPINE&/FX KNEE W/O FIXJ KNEE ARTHROSCOPY Right PROCEDURE: NM ARTHROSCOPY AID TX SPINE&/FX KNEE W/O FIXJ OTHER SURGICAL HISTORY 06/16/2018 PROCEDURE: HISTORY OTHER; COMMENT: ECHOCARDIOGRAM OTHER SURGICAL HISTORY Right PROCEDURE: HISTORY OTHER; COMMENT: TOTAL HIP REPLACEMENT Medical History Medical History Date Comments Diabetes mellitus ([facility] V 24, [facility] V28) DX:Diabetes mellitus (HCC) Lung nodules DX:Lung nodules LISETTE on CPAP DX:LISETTE on CPAP Arthralgia DX:Arthralgia [place] esophagus DX:[place] eso phagus Bilateral pleural effusion DX:Bi lateral pleural effusion Vascular disease DX:Vascular dis ease Diabetic retinopathy ([facility]/ C V24, [facility] V28) DX:Diabetic retinopathy (HCC ) ROSADO (dyspnea on exertion) DX:ROSADO (dyspnea on exertion) HTN (hypertension) DX:HTN (hyper tension) Hx of CABG DX:Hx of CABG Hx of heart artery stent DX:Hx o f heart artery stent Severe obesity (BMI 35.0-39. 9) with comorbidity (CMS/HCC V24, CMS/HCC V28) DX:Severe obesi ty (BMI 35.0-39.9) with comorbidity (HCC) Raynaud phenomenon DX:Raynaud ph enomenon OA (osteoarthritis) DX:OA (osteo arthritis) Left shoulder pain DX:Left shoul sharri pain Family History Medical History Relation Name Comments Coronary artery disease Father Heart failure Father Coronary artery disease Mother Heart failure Mother Relation Name Status Comments Father Mother Social History Tobacco Use Types Packs/Day Years Used Date Smoking Tobacco: Former Cigarettes Q uit: 06/01/1987 Smokeless Tobacco: Never Tobacco Cessation:Counseling Given: Not Answered Alcohol Use Standard Drinks/Week Comments Yes 0 (1 standard drink = 0.6 oz pur e alcohol) Sex and Gender Information Value Date Recorded Sex Assigned at Male 03/26/2024 8:22 AM EDT Legal Sex Male 6:00 AM EST Gender Identity Male 03/26/2024 8:22 AM EDT Sexual Orientation Straight 03/26/2024 8: 22 AM EDT Obstetrics History Last Filed Vital Signs Vital Sign Reading Time Taken Comments Blood Pressure 130/64 12/22/2024 10:40 AM EDT Pulse 68 12/22/2024 10:40 AM EDT Temperature - - Respiratory Rate - - Oxygen Saturation 99% 12/22/2024 10:40 AM EDT Inhaled Oxygen Concentration - - Weight 112 kg (247 lb) 12/22/2024 10:40 AM EDT Height 182.9 cm (6' 0.01 ) 12/22/2024 10:40 AM E DT Body Mass Index 33.49 12/22/2024 10:40 AM EDT Plan of Treatment Health Maintenance Due Date Last Done Comments Diabetes: Annual Foot Exam 1955 Diabetes: Annual Retina Eye Exam 1955 DTaP,Tdap,and Td Vaccines (1 - Tdap) 1965 Falls Risk Assessment 05/10/2022 Hepatitis C Screening 05/10/2022 Social Influencers of Health Screening 05/10/2022 Medicare Annual Wellness Visit 05/07/2023 05/07/2022 COVID-19 Vaccine ( season) 2024 02/28/2022, 08/30/2021, 03/27/2021, Additional history exists Diabetes: Annual Urine Albumin-Creatinine Ratio (uACR) 04/26/2024 Diabetes: Blood Sugar Control Test (HGBA1C) 04/26/2024 Depression Screening 06/01/2024 Influenza Vaccine (#1) 2025 , 03/04/2023, 02/28/2022, Additional history exists Diabetes: Annual GFR (Glomerular Filtration Rate) 12/22/2025 12/22/2024, 11/11/2023, 11/11/2023 Hypertension/CHF/CAD Annual BMP Blood Test 12/22/2025 12/22/2024, 11/11/2023, 11/11/2023 Cholesterol Screening (Lipid Panel) 11/10/2028 11/11/2023, 11/11/2023 Zoster Vaccines Completed 05/04/2018, 02/17/2018 Pneumococcal Vaccine: 50+ Years Completed 05/18/2023 RSV Immunization Adult Patients Completed 06/13/2024 HIB Vaccines Aged Out No longer eligi ble based on patient's age to complete this topic HPV Vaccines Aged Out No longer eligi ble based on patient's age to complete this topic Hepatitis A Vaccines Aged Out No long er eligible based on patient's age to complete this topic Hepatitis B Vaccines Aged Out No long er eligible based on patient's age to complete this topic IPV Vaccines Aged Out No longer eligi ble based on patient's age to complete this topic MMR Vaccines Aged Out No longer eligi ble based on patient's age to complete this topic Meningococcal ACWY Vaccine Aged Out N o longer eligible based on patient's age to complete this topic Meningococcal B Vaccine Aged Out No l onger eligible based on patient's age to complete this topic RSV Immunization Patients Under 20 months Aged Out No longer eligible based on patient's age to complete this topic Varicella Vaccines Aged Out No longer eligible based on patient's age to complete this topic Procedures Procedure Name Priority Date/Time Associated Diagnosis Comments BASIC METABOLIC PANEL Routine 12/22/2024 11:20 AM EDT Congestive heart failure, unspecified HF chronicity, unspecified heart failure type (CMS/HCC V24, CMS/[facility] V28) B-TYPE NATRIURETIC PEPTIDE Routine 12/22/2024 11:20 AM EDT Congestive heart failure, unspecified HF chronicity, unspecified heart failure type (CMS/HCC V24, CMS/HCC V28) MAGNESIUM Routine 12/22/2024 11:20 AM EDT Congestive heart failure, unspecified HF chronicity, unspecified heart failure type (CMS/HCC V24, CMS/HCC V28) ECG 12-LEAD Routine 12/22/2024 10:45 AM EDT Coronary artery disease involving coronary bypass graft of [place] heart without angina pectoris LIPID PANEL Routine 11/11/2023 from Last 3 Months or Most Recently Relevant to Health Maintenance Results * B-type natriuretic peptide (12/22/2024 11:20 AM EDT) BNP 47 <=100 pcg/mL LAB CHEMISTRY METHOD 12/22/2024 2:38 PM EDT [facility] Blood Venous blood specimen / Unknown Venipuncture / Unknown 12/22/2024 11:20 AM EDT 12/22/2024 11:20 AM EDT us Willian Benjamin MD LAB BLOOD ORDERABLES Final Resul t [facility] [address] [place] [address], * Magnesium (12/22/2024 11:20 AM EDT) Magnesium 2.0 1.9 - 2.6 mg/dL LAB CHEMISTRY METHOD 12/22/2024 2:35 PM EDT [facility] Blood Venous blood specimen / Unknown Venipuncture / Unknown 12/22/2024 11:20 AM EDT 12/22/2024 11:20 AM EDT us Willian Benjamin MD LAB BLOOD ORDERABLES Final Resul t [facility] [address] [place] [address], * (ABNORMAL) Basic metabolic panel (12/22/2024 11:20 AM EDT) Sodium 135 133 - 145 mmol/L LAB CHEMISTRY METHOD 12/22/2024 2:42 PM [facility] Potassium 4.5 3.5 - 5.5 mmol/L LAB CHEMISTRY METHOD 12/22/2024 2:42 PM [facility] Chloride 100 96 - 110 mmol/L LAB CHEMISTRY METHOD 12/22/2024 2:42 PM [facility] CO2 32 21 - 32 mmol/L LAB CHEMISTRY METHOD 12/22/2024 2:42 PM [facility] Anion Gap 3 3 - 11 LAB CHEMISTRY METHOD 12/22/2024 2:42 PM [facility] Glucose 166(H) 70 - 100 mg/dL LAB CHEMISTRY METHOD 12/22/2024 2:42 PM [facility] BUN 6 5 - 25 mg/dL LAB CHEMISTRY METHOD 12/22/2024 2:42 PM [facility] Creatinine 1.04 0.70 - 1.30 mg/dL LAB CHEMISTRY METHOD [facility] eGFR 73 >=60 mL/min/1. 73m2 LAB CHEMISTRY METHOD 12/22/2024 2:42 PM [facility] Comment:Calculation based on the Chronic Kidney Disease Epidemiology Collaboration (CKD-EPI) equation refit without adjustment for race. BUN/Creatinine Ratio 5.8 LAB CHEMISTRY METHOD 12/22/2024 2:42 PM [facility] Calcium 9.7 8.5 - 10.5 mg/dL LAB CHEMISTRY METHOD 12/22/2024 2:42 PM EDT [facility] ([facility]) [facility] Blood Venous blood specimen / Unknown Venipuncture / Unknown 12/22/2024 11:20 AM EDT 12/22/2024 11:20 AM EDT Willian Benjamin MD LAB BLOOD ORDERABLES Final Resul t [facility] ([facility]) [facility] [address] [place] [address], * ECG 12 lead (12/22/2024 10:45 AM EDT) Ventricular Rate ECG 68 BPM GEMUSE Atrial Rate 68 BPM GEMUSE P-R Interval 264 ms GEMUSE QRS Duration 170 ms GEMUSE Q-T Interval 446 ms GEMUSE QTc 474 ms GEMUSE P Wave [place] 68 degrees GEMUSE R [place] -31 degrees GEMUSE T [place] 29 degrees GEMUSE ECG Interpretation Sinus rhythm with 1st degree A-V block with Premature atrial complexes Left axis deviation Right bundle branch block Abnormal ECG When compared with ECG of 22-JUN-2024 10:46, Premature atrial complexes are now Present Right bundle branch block has replaced Non-specific intra-ventric ular conduction block Confirmed by Hanna BENJAMIN, WILLIAN ([id number]) on 12/22/2024 11:22:04 AM GEMUSE 12/22/2024 10:4 5 AM EDT 12/22/2024 11:22 AM EDT Willian Benjamin MD ECG ORDERABLES Final Result GEMUSE * (ABNORMAL) Lipid panel (11/11/2023) LDL/HDL Ratio 5(A) 0 - 4 Triglycerides 158(A) 0 - 150 mg/dL Cholesterol 178 0 - 200 mg/dL HDL 39(A) >=40 mg/dL LDL Cholesterol 108 0 - 400 mg/dL Blood Venous blood specimen / Unknown Historical Provider LAB BLOOD ORDERABLES Kristin l Result from Last 3 Months or Most Recently Relevant to Health Maintenance Insurance MEDICARE [facility] Advance Directives Documents on File Type Date Recorded Patient Physician Relations Specialist Expl anation Health Care Decision (hx) 07/25/2016 AD POLK DIRECTIVE Health Care Decision (hx) 07/25/2016 AD POLK DIRECTIVE Health Care Decision (hx) 07/25/2016 AD POLK DIRECTIVE Health Care Decision (hx) 07/25/2016 AD POLK DIRECTIVE Health Care Decision (hx) 07/25/2016 AD POLK DIRECTIVE Health Care Decision (hx) 07/25/2016 AD POLK DIRECTIVE Health Care Decision (hx) 07/25/2016 AD POLK DIRECTIVE Health Care Decision (hx) 07/25/2016 AD POLK DIRECTIVE Health Care Decision (hx) 07/25/2016 AD POLK DIRECTIVE Care Teams [employer] Marketing Analyst Relationship Specialty Start Date End Date Shayan Sosa MD [address] [facility] [address] [place], [place] PCP - General Internal Medicine 01/31/22
== END 2025-01-16 11:33 | disposition home or self-care (01) ==
LOC: HO.HPS 10:45
PROVIDERS: PCP Internal Medicine; Visit Provider Hospitalist
DX: R06.00 Dyspnea, unspecified (principal); G47.33 Obstructive sleep apnea (adult) (pediatric); Z99.89 Dependence on other enabling machines and devices; J98.4 Other disorders of lung; J41.0 Simple chronic bronchitis
CPT/HCPCS: 99214; G2211

== ENCOUNTER → 2025-01-16 10:45 | Outpatient (BNVA) | payer MEDICARE, SELFPAY | PROVIDERS: PCP Internal Medicine; Visit Provider Hospitalist | DX: G47.33 Obstructive sleep apnea (adult) (pediatric) (principal); J41.0 Simple chronic bronchitis; J98.4 Other disorders of lung; R06.00 Dyspnea, unspecified; Z99.89 Dependence on other enabling machines and devices | CPT/HCPCS: 99212 ==